=== PATIENT | male | born 1980 | race American Indian/Alaskan Native ===

== ENCOUNTER 2019-10-19 23:40 | Emergency (ER) | payer SELFPAY ==
[2019-10-20] MEDS ORDERED: IBUPROFEN 400 MG TAB PO ONE (00:05)
[2019-10-20] MEDS ORDERED: FAMOTIDINE 20 MG TAB PO ONE (00:05)
[2019-10-20] MEDS ORDERED: diphenhydrAMINE 25 MG CAP PO ONE (00:05)
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
--- NOTE | 2019-10-20 00:46 | XRay Report ---
CHEST 2 VIEWS 0027 INDICATION / CLINICAL INFORMATION: Chest tightness, shortness of breath COMPARISON: None available. FINDINGS: SUPPORT DEVICES: None. HEART / MEDIASTINUM: No significant abnormality. LUNGS / PLEURA: No significant pulmonary or pleural abnormality. No pneumothorax. ADDITIONAL FINDINGS: No significant additional findings. IMPRESSION: No significant acute abnormality Signer Name: Enmanuel Hodges MD Signed: 10/20/2019 12:41 AM Workstation Name: [id number]
[2019-10-20 01:14] VITALS: BP 119/75
== END 2019-10-20 01:14 | disposition home or self-care (01) ==
LOC: ED 23:40
DX: R07.89 Other chest pain (principal); F41.9 Anxiety disorder, unspecified; F17.200 Nicotine dependence, unspecified, uncomplicated; F12.10 Cannabis abuse, uncomplicated
CPT/HCPCS: 71046; 93005